=== PATIENT | male | born 1985 | race Caucasian/White ===

== ENCOUNTER 2021-12-13 12:16 | Emergency (ER) | payer OTHER ==
[2021-12-13 13:28] LABS: HEMOGLOBIN 16.4 gm/dl (14.0-17.5); RED BLOOD COUNT 5.37 M/UL (4.20-5.50); WHITE BLOOD COUNT 11.3 K/UL (4.5-11.0)
[2021-12-13] MEDS ORDERED: ZOFRAN 4 MG TAB4 MG PO (17:28)
[2021-12-13 17:39] LABS: BUN/CREATININE RATIO 14 (0-10)
== END 2021-12-13 18:25 | disposition home or self-care (01) ==
LOC: ER1 12:16
PROVIDERS: Emergency Medicine
DX: R10.9 Unspecified abdominal pain (principal); R10.817 Generalized abdominal tenderness; R11.2 Nausea with vomiting, unspecified; R19.7 Diarrhea, unspecified; F17.200 Nicotine dependence, unspecified, uncomplicated; R79.89 Other specified abnormal findings of blood chemistry
CPT/HCPCS: 80053; 83690; 85025; 96374; 96375; 99284; J2270; J2405; Q9967